=== PATIENT | female | born 1945 | race Caucasian/White ===

== ENCOUNTER → 2023-08-24 08:51 | Outpatient (REF) | payer MEDICARE, OTHER, SELFPAY | LOC: RAD 08:51 | PROVIDERS: ATTENDING PHYSICIAN Internal Medicine Endocrinology, Diabetes & Metabolism; FAMILY PHYSICIAN Internal Medicine | DX: E21.3 Hyperparathyroidism, unspecified (principal) | CPT/HCPCS: 78071; A9500 ==

== ENCOUNTER → 2023-09-06 11:53 | Outpatient (REF) | payer MEDICARE, OTHER, SELFPAY | LOC: HWRAD 11:53 | PROVIDERS: ATTENDING PHYSICIAN Surgery; FAMILY PHYSICIAN Internal Medicine; REFERRING PHYSICIAN Internal Medicine Endocrinology, Diabetes & Metabolism | DX: E04.0 Nontoxic diffuse goiter (principal) | CPT/HCPCS: 70491; Q9967 ==

== ENCOUNTER → 2023-09-22 11:06 | Outpatient (REF) | payer MEDICARE, OTHER, SELFPAY | LOC: HWRAD 11:06 | PROVIDERS: ATTENDING PHYSICIAN Surgery; FAMILY PHYSICIAN Internal Medicine; REFERRING PHYSICIAN Internal Medicine Endocrinology, Diabetes & Metabolism | DX: E04.1 Nontoxic single thyroid nodule (principal); E21.0 Primary hyperparathyroidism | CPT/HCPCS: 76536 ==

== ENCOUNTER 2023-10-04 06:23 | Day surgery (SDC) | payer MEDICARE, OTHER, SELFPAY ==
--- NOTE | 2023-09-30 13:54 | PTCARENOTE ---
Patients 09/29 EKG abnormal- reviewed by Dr. Morales- no additional interventions required
[2023-10-03 11:50] VITALS: BMI 19.6
[2023-10-04] VITALS (11 sets, daily range): BP systolic 130–169; BP diastolic 68–105; BMI 19.5
[2023-10-04] MEDS: TYLENOL 1000 MG PO (11:41)
[2023-10-04] MEDS: NEURONTIN 300 MG PO (11:42)
[2023-10-04 11:58] LABS: Glucose - Point of Care 167 mg/dl (70-99)
[2023-10-04] MEDS: NORMOSOL-R 1000 IV (12:00)
[2023-10-04] MEDS: HEPARIN 5000 UNITS SC (12:06)
[2023-10-04 14:18] LABS: Turbo PTH 141.8 pg/ml (13.6-85.8)
[2023-10-04 14:37] LABS: Glucose - Point of Care 158 mg/dl (70-99)
[2023-10-04 14:49] LABS: Turbo PTH 108.9 pg/ml (13.6-85.8)
--- NOTE | 2023-10-04 15:33 | OR.RPT ---
Operative Report
Operative Report
PATIENT NAME: Ariana Orlando
DATE OF : 1945
DATE OF OPERATION: October 04, 2023
PREOPERATIVE DIAGNOSIS: hyperparathyroidism & left substernal goiter
POSTOPERATIVE DIAGNOSIS: Same
SURGEON: Jose Gonzalez M.D.
OPERATION: Neck exploration, Resection of the left substernal goiter, and parathyroidectomy
ANESTHESIA: GET
ESTIMATED BLOOD LOSS: 3 cc
DRAINS: None
SPECIMEN: Left thyroid lobe, and right and left inferior parathyroidectomy
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
COMPLICATIONS: None
PROCEDURE:
The patient was taken to the operating room and placed in the usual supine position. After adequate general endotracheal anesthesia was established, the patient�s neck was extended, prepped, and draped in the typical sterile fashion. A 5 cm
transcervical incision was made two fingerbreadths above the sternal notch. The skin incision was made with the #15 blade, which was taken through the skin into the subcutaneous tissue. The underlying platysma muscle was divided, and subplatysmal
flaps were created superiorly to the thyroid cartilage and inferiorly to the sternal notch. Strap muscles were identified and at the midline.
Attention was turned to the patient�s right thyroid lobe. The right thyroid lobe was mobilized medially. During this process, the right middle thyroid vein and inferior thyroid artery were dissected and ligated with Ligasure. There was a substernal
extension, which was delivered out of the mediastinum through the cervical incision. Next, the right superior pole was taken down by dissecting and transecting the superior pole vessels with a Ligasure. The right thyroid lobe was mobilized medially.
During this process, the right recurrent laryngeal nerve was identified and preserved throughout its entire course. An enlarged right parathyroid gland was identified and preserved. The right thyroid lobe with isthmus was resected off the trachea
and sent to the pathology department. The intraoperative PTH levels failed to normalize. There was no other obvious parathyroid gland on the right side.
The attention was turned to the left side of the neck. The left thyroid lobe was mobilized medially. During this process, the left recurrent laryngeal nerve was identified and preserved throughout the surgery. The left lower neck nodule was
identified and noted to be enlarged, excised, and sent to the pathology department, which showed a hypercellular parathyroid gland. The normal-appearing left superior parathyroid gland was identified and preserved.
After obtaining adequate hemostasis, the strap muscle was approximated with #3-0 Vicryl in a running fashion, and platysma muscles were reapproximated with #3-0 Vicryl in an interrupted fashion, and the skin was approximated with #4-0 Monocryl in a
running subcuticular fashion. Steri-strips and sterile dressings were placed. The patient tolerated the procedure well. The final instrument, needle, and sponge counts were correct.
[2023-10-04 15:34] LABS: Glucose - Point of Care 196 mg/dl (70-99)
[2023-10-04 15:43] LABS: Turbo PTH 37.9 pg/ml (13.6-85.8)
[2023-10-04] MEDS: ZOFRAN 4 MG IV (15:54)
[2023-10-04] MEDS: COMPAZINE 5 MG IV (17:35)
== END 2023-10-04 17:54 | disposition home or self-care (01) ==
LOC: SDS 06:23
PROVIDERS: ATTENDING PHYSICIAN Surgery
DX: C73 Malignant neoplasm of thyroid gland (principal); E21.3 Hyperparathyroidism, unspecified; E04.9 Nontoxic goiter, unspecified
CPT/HCPCS: 60500; 88305; 88307; 82962; 83970; C1776; C9250

== ENCOUNTER → 2023-12-15 14:23 | Outpatient (REF) | payer MEDICARE, OTHER, SELFPAY | LOC: HWWDC 14:23 | PROVIDERS: ATTENDING PHYSICIAN Internal Medicine | DX: Z12.31 Encounter for screening mammogram for malignant neoplasm of breast (principal) | CPT/HCPCS: 77063; 77067 ==

== ENCOUNTER 2024-02-16 16:56 | Emergency (ER) | payer MEDICARE, OTHER, SELFPAY ==
[2024-02-16 17:00] VITALS: BP 141/96
[2024-02-16 17:29] LABS: % Basophils 0.1 % (0-2); % Immature Granulocytes 0.3 % (0-0.5); % Lymphocytes 4.4 % (20.5-51.1); % Monocytes 2.7 % (1.7-9.3); % Neutrophils 92.5 % (42.2-75.2); Absolute Lymphocytes 0.3 10^3/uL (1.2-3.4); Absolute Monocytes 0.2 10^3/uL (0.1-0.6); Absolute Neutrophils 6.7 10^3/uL (1.4-6.5); Mean Corp Hgb Conc. 33.3 g/dL (33.0-37.0); Mean Corpuscular Hgb 30.2 pg (27.0-31.0); Mean Corpuscular Volume 90.5 fL (81.0-99.0); Mean Platelet Volume 9.4 fL (7.4-10.4); Nucleated Red Blood Cells % 0 %; Platelet Count 152 10^3/uL (130-400); Red Blood Cell Count 4.97 10^6/uL (4.20-5.40); Red Cell Dist. Width 12.9 % (11.5-14.5); White Blood Cell Count 7.3 10^3/uL (4.8-10.8)
[2024-02-16 17:43] LABS: ALT (SGPT) 25 U/L (0-35); AST (SGOT) 28 U/L (14-36); Albumin 4.5 g/dl (3.5-5.0); Alkaline Phosphatase 79 U/L (38-126); Blood Urea Nitrogen 23 mg/dl (7-17); Calcium 8.4 mg/dl (8.4-10.2); Carbon Dioxide 24 mmol/L (22-30); Chloride 100 mmol/L (98-107); Glucose 279 mg/dl (70-99); Potassium 4.7 mmol/L (3.5-5.1); Sodium 135 mmol/L (135-145); Total Bilirubin 0.9 mg/dl (0.2-1.3); Total Protein 7.1 g/dl (6.3-8.2); eGFR > 60.00
[2024-02-16 17:44] LABS: Lipase 37 U/L (23-300)
--- NOTE | 2024-02-16 18:13 | ED.GENMED ---
History of Present Illness
General
Chief Complaint: Abdominal Symptoms
Source: patient
Exam Limitations: none
Time Seen by Provider: 02/16/24 17:57
History of Present Illness
History of Present Illness:
This is a 79 year old female that comes in with c/o vomiting and diarrhea. States that she started vomiting last night at 12 midnight. States that this continued to 10am. States that she also had diarrhea and this has been consistent. States that
she did stop vomiting. States that she hasn't been able to keep anything down. States that know her abd is just sore. States that she went to see the PCP and they felt it could be pancreatitis, Gallbladder or her appendix. States that she feels
lightheaded. Denies any fever, chills, chest pain, SOB, headache, urinary burning.
Past History
Past History
ED Past Medical History: HTN, Hypercholesterolemia, NIDDM, Psychiatric (Anxiety, Depression) and Other (Ovarian cyst, C-diff, Diverticulitis, )
ED Past Surgical History: Other (Mykel cataracts, Thyroidectomy)
Social History
Tobacco: Former smoker
Alcohol: None
Personal:
Living: with family
Employment: Retired
Review of Systems
Review of Systems
All Other Systems: ROS reviewed and negative except as documented in HPI and ROS
Constitutional: Reports no symptoms; Denies fever or chills
EENT: Reports no symptoms
Respiratory: Reports no symptoms; Denies cough or trouble breathing
Cardiac: Reports no symptoms; Denies chest pain
ABD/GI: Reports abdominal pain, nausea, vomiting and diarrhea
: Reports no symptoms; Denies dysuria, frequency or urgency
Musculoskeletal: Reports no symptoms
Skin: Reports no symptoms
Neurological: Reports other (Lightheaded); Denies dizzy or headache
Psychiatric: Reports no symptoms
Phy Exam
General Physical Exam
General Presentation: well appearing and no apparent distress
General age: appears stated age
General Skin: warm and dry
General Habitus: elderly
General Mental: alert
General Hydration: dry mucous membranes
ENT Exam
ENT Exam: TM's normal, pharynx normal and neck supple
Eye Exam
Eye Exam: EOMI
Cardiovascular Exam
Cardiovascular Exam: regular rate/rhythm, no edema, no murmur and normal peripheral pulses
Pulmonary Exam
Pulmonary Exam: lungs clear, no respiratory distress, no rales, chest non tender, no crackles, no rhonchi, no wheezing and no cough
Gastrointestinal Exam
Gastrointestinal Exam: soft, no organomegaly, no pulsatile mass, non distended, tender (Epigastric tenderness and right lower quadrant with palpation) and other (Hypoactive bowel sounds)
Musculoskeletal Exam
Musculoskeletal Exam: full ROM and no edema
Skin Exam
Skin Exam: normal color, warm/dry, no rash and no petechia
Psychiatric Exam
Psychiatric Exam: normal mood/affect
Course
Orders/Labs/Results
Orders:
Orders
02/16/24 17:09
Complete Blood Count/With Diff Urgent
Comprehensive Metabolic Panel Urgent
Lipase Urgent
02/16/24 18:06
0.9% Sodium Chloride 1000 ml [Nss] 1,000 ml IV BOLUS
Ondansetron Injectable [Zofran] 4 mg IV NOW STA
US Abdomen - Appendix Only Urgent
Comment:
Reason For Exam: Right lower abd pain
US Abdomen Complete/Upper Urgent
Comment:
Reason For Exam: right sided and epigastric pain.
Abnormal Lab Results
02/16/24
17:09
Absolute Neuts (auto) 6.7 H 10^3/uL
(1.4-6.5)
Absolute Lymphs (auto) 0.3 L 10^3/uL
(1.2-3.4)
Neutrophils % 92.5 H %
(42.2-75.2)
Lymphocytes % 4.4 L %
(20.5-51.1)
BUN 23 H mg/dl
(7-17)
Glucose 279 H mg/dl
(70-99)
02/16/24 17:09
02/16/24 17:09
Dehydration. Hyperglycemia. Lipase normal at 37
Vital Signs
Initial and Last Documented VS:
Initial Vital Signs
Temp Pulse Resp BP Pulse Ox
98.4 F 101 18 141/96 97
02/16/24 17:00 02/16/24 17:00 02/16/24 17:00 02/16/24 17:00 02/16/24 17:00
Last Documented Vital Signs
Temp Pulse Resp BP Pulse Ox
98.4 F 101 18 152/82 97
02/16/24 17:00 02/16/24 17:00 02/16/24 17:00 02/16/24 18:16 02/16/24 18:30
MDM/Problems Addressed
Differential Diagnosis Includes:
Viral GI syndrome, Gastritis, Gallbladder disease
MDM/Problems Addressed:
This is a 79 year old female that comes in with c/o vomiting and diarrhea. State that she hasn't been able to keep anything down. State that the vomiting has stopped but the diarrhea has continued. Patient Has not been on any antibiotics.
Will get labs, US abd, Give IV fluids and Zofran for the nausea.
Back into see patient. Patient states that she is feeling better. Patient has no pain in the right lower quadrant at this time with palpation. Reviewed both Ultrasound. Patient states that she is ready to go home. Will sent a prescription for Zofran
to her pharmacy. Patient to stay on liquid diet for the next 24 hours. Return with fever, increased pain or any other concerns.
Chronic conditions affecting care: DM
Acute Exacerbation and/or Progression of Chronic Illness:
NA
*Radiology
Radiology exam reviewed: radiology read reviewed (US appendix- scanning over the right lower quadrant did not demonstrate a normal or abnormal appendix. This does not include or exclude a diagnosis of acute appendicitis. US abdomen- essentially
unremarkable abdominal ultrasound. )
*Pulse Oximetry
Patient hypoxic: no
*EKG
Interpreted by ED Provider?: NA
Rate: EKG- N/A
*Train Inspector Interpretation
Rate: Train Inspector- N/A
*Critical Care Note
Total Time (30-74mins, 75-104mins- exclusive of procedures): Not Applicable
ED Attending Note
-
Portions of this chart may have been created with voice recognition software.� Occasional wrong word or��sound alike� substitutions may have occurred due to the inherent limitations of voice recognition software.
Discharge Plan
Departure
Patient Disposition: Home (Routine Discharge)
Date of Disposition: 02/16/24
Time of Disposition: 20:42
Patient with high blood pressure during this ER visit?: Yes
Condition: Good
Covid-19: Not Applicable
Discharge Problem:
Nausea & vomiting, Diarrhea
Instructions: Diarrhea in teens and adults, Nausea and Vomiting, Adult (DC), BLOOD PRESSURE
Prescriptions:
New
ondansetron 4 mg tablet,disintegrating
4 mg PO Q8H PRN (Reason: nausea and vomiting) Qty: 7 0RF
No Action
Saccharomyces boulardii [Florastor] 250 MG capsule
250 mg PO BID
pravastatin 40 mg Tablet
40 mg PO DAILY
valsartan 160 mg Tablet
160 mg PO DAILY
Prolia 60 mg/mL Syringe
60 mg SC [id number]
repaglinide 0.5 mg Tablet
0.5 mg PO QPM
Rx Instructions:
Takes 15 minutes prior to evening meal
diphenhydramine HCl 25 mg Tablet
25 mg PO HS PRN (Reason: sleep)
Referrals:
Pratibha Mcgrath, [Family Provider] - Follow up in 2-3 days
Activity Restrictions/Additional Instructions:
As discussed, your blood work shows slight Dehydration. Please stay on a liquid diet for the next 24 hours. Please stay away from milk and milk products as long as you have diarrhea. Increase your diet as tolerated. A prescription for Zofran has
been sent to your pharmacy. Follow up with the family doctor for recheck. This is most likel the GI virus that is going around. IF YOU HAVE FEVER, INCREASED OR CHANGING ABD PAIN, OR YOU HAVE ANY OTHER CONCERNS PLEASE RETURN TO THE EMERGENCY ROOM.
Interventions
Interventions:
*Risk Screen - Suicide Last Done: 02/16/24 17:00
*General Assessment Last Done: 02/16/24 17:00
*Neglect/Abuse Screening Last Done: 02/16/24 17:00
*ED COVID-19 Vaccine History Last Done: 02/16/24 17:00
OX-[id number]-Ledlpyicnf Assessment Last Done: 02/16/24 18:15
Discharge Date and Time
Print Language: LAO
[2024-02-16] MEDS: NSS 1000 IV (18:14)
[2024-02-16] MEDS: ZOFRAN 4 MG IV (18:14)
[2024-02-16 18:16] VITALS: BP 152/82
[2024-02-16 19:53] VITALS: BP 145/82
[2024-02-16 20:01] VITALS: BP 135/80
[2024-02-16] MEDS: ZOFRAN ODT (ORALLY DISINTEGRATING) 4 MG PO (20:54)
== END 2024-02-16 21:12 | disposition home or self-care (01) ==
LOC: EMR 16:56
PROVIDERS: Emergency Medicine; EMERGENCY PHYSICIAN Emergency Medicine; FAMILY PHYSICIAN Internal Medicine
DX: E86.0 Dehydration (principal); R11.2 Nausea with vomiting, unspecified; R19.7 Diarrhea, unspecified; I10 Essential (primary) hypertension; E78.00 Pure hypercholesterolemia, unspecified; E11.65 Type 2 diabetes mellitus with hyperglycemia; Z87.891 Personal history of nicotine dependence
CPT/HCPCS: 99284; 96374; 96361; 76700; 76705; 80053; 83690; 85025

== ENCOUNTER → 2025-01-10 13:57 | Outpatient (REF) | payer MEDICARE, OTHER, SELFPAY | LOC: HWRAD 13:57 | PROVIDERS: ATTENDING PHYSICIAN Internal Medicine | DX: Z12.31 Encounter for screening mammogram for malignant neoplasm of breast (principal); M81.0 Age-related osteoporosis without current pathological fracture | CPT/HCPCS: 77063; 77067; 77080 ==